=== PATIENT | female | born 1995 | race Caucasian/White ===

== ENCOUNTER 2021-09-07 11:09 | Outpatient (CLI) | payer OTHER, SELFPAY ==
[2021-09-07 18:54] LABS: Hemoglobin 12.8 g/dL (12.0-15.0); Mean Corpuscular HGB Conc 31.2 g/dl (32-36); Mean Corpuscular Hemoglobin 29.2 pg (26-34); Mean Corpuscular Volume 93.6 fl (80-100); Mean Platelet Volume 10.6 fl (7.4-10.4); Platelet Count Result 325 k/mm3 (150-375); Red Blood Count 4.38 M/mm3 (4.2-5.4); Red Cell Distribution Width 13.2 % (11.5-14.5); White Blood Count 9.3 K/mm3 (4.5-10.0)
[2021-09-07 19:19] LABS: Alanine Aminotransferase 41 U/L (4-35); Albumin Level 4.3 g/dL (3.5-5.1); Alkaline Phosphatase 58 U/L (38-126); Anion Gap 11 mmol/L (8-16); Aspartate Amino Transferase 37 U/L (14-36); Bilirubin,Total 1.1 mg/dL (0.2-1.3); Blood Urea Nitrogen 12 mg/dL (7-17); Calcium 9.2 mg/dL (8.4-10.2); Carbon Dioxide 22 mmol/L (22-30); Chloride 104 mmol/L (98-107); Cholesterol 231 mg/dL (0-200); Estimated Glomerular Filt Rate > 60; Glucose 108 mg/dL (65-110); HDL Direct 62 mg/dL; Potassium 4.1 mmol/L (3.4-5.0); Sodium 137 mmol/L (137-145); Triglycerides 114 mg/dL (<150)
[2021-09-07 19:30] LABS: LDL Cholesterol Direct 132 mg/dL
== END 2021-09-07 11:10 | disposition home or self-care (01) ==
LOC: ANHBWCLAB 11:11
PROVIDERS: PCP Family Medicine; Visit Provider Family Medicine
DX: Z00.00 Encounter for general adult medical examination without abnormal findings (principal); G43.909 Migraine, unspecified, not intractable, without status migrainosus; F41.9 Anxiety disorder, unspecified; R00.2 Palpitations
CPT/HCPCS: 36415; 80053; 80061; 82306; 84443; 85027

== ENCOUNTER 2021-11-07 09:54 | Outpatient (CLI) | payer OTHER, SELFPAY ==
[2021-11-07 19:07] LABS: Alanine Aminotransferase 15 U/L (6-35); Albumin Level 4.1 g/dL (3.5-5.1); Alkaline Phosphatase 58 U/L (38-126); Aspartate Amino Transferase 19 U/L (14-36); Bilirubin,Total 0.9 mg/dL (0.2-1.3)
== END 2021-11-07 09:55 | disposition home or self-care (01) ==
PROVIDERS: PCP Family Medicine; Visit Provider Family Medicine
DX: R74.8 Abnormal levels of other serum enzymes (principal)
CPT/HCPCS: 36415; 80076

== ENCOUNTER 2022-04-11 10:54 | Emergency (ER) | payer OTHER, SELFPAY ==
[2022-04-11 11:02] VITALS: BP 137/90; PULSE 114; RESP 18; TEMP 36.9; O2SAT 99
--- NOTE | 2022-04-11 11:24 | ED.URI ---
HPI - URI/Sore Throat General Chief Complaint: Upper Respiratory Infection Stated Complaint: Sore Throat,Congestion,Runny Nose Time Seen by Provider: 04/11/22 11:17 Source: patient Mode of arrival: ambulatory Limitations: no limitations History of Present Illness HPI Narrative: Patient presents today with a 2 day history of cough, headache, sore throat, fever up to 100.8. Denies shortness of breath or chest pain. She has been taking DayQuil and NyQuil with mild relief. She did not receive a flu vaccine this season. Related Data Home Medications Medication Instructions Recorded Confirmed levonorgestrel-ethinyl estradiol 1 tablet PO DAILY 09/07/21 04/11/22 0.1 mg-20 mcg tablet (Vienva) Allergies Allergy/AdvReac Type Severity Reaction Status Date / Time No Known Allergies Allergy Verified 04/11/22 11:21 Review of Systems Review of Systems: CONSTITUTIONAL: Denies body aches, chills, or sweats.+ Fever EYES: Denies visual changes, redness, or discharge. ENT: Denies rhinorrhea, congestion, or otalgia.+ sore throat CARDIOVASCULAR: Denies chest pain, palpitations, or edema. RESPIRATORY: Denies dyspnea.+ cough GASTROINTESTINAL: Denies abdominal pain, nausea, vomiting, or diarrhea. GENITOURINARY: Denies dysuria or hematuria. SKIN: Denies rash, itching, or wounds. MUSCULOSKELETAL: Denies back pain, joint pain, or myalgia. NEUROLOGIC: Denies numbness, tingling, or weakness.+ headache PSYCH: Denies depression or anxiety. [facility] Past Medical History Medical History Anxiety Migraine Family History Family History Father Hypertension Grandparent Diabetes mellitus Heart disease Depression Cancer Grandparent Alcohol abuse Diabetes mellitus Hypertension Heart disease Social History Social History Smoking status: Unknown if ever smoked Drinks per week: 3 Alcohol use details: wine Substance use: never Additional occupation/education comments: [employer] Gender identity (if verbalized by the patient): Female Sexual Orientation (if Verbalized by the Patient): Straight or Heterosexual Agree to blood products: Yes Comments At time of signature, I have reviewed and agree with nursing past medical, surgical, social and family history unless otherwise noted. Please see nursing chart for further information. There is no relevant family history pertinent to the presenting complaint Exam Narrative: GENERAL: mildly ill-appearing, well-nourished, and in no acute distress. HEAD: Normocephalic, atraumatic. EYES: EOMI. No redness or drainage. Conjunctivae normal. ENT: Mucous membranes pink and moist. Nares clear. No rhinorrhea. TMs normal bilaterally. Throat mildly erythematous without edema or exudate. Uvula midline. NECK: Normal AROM. Supple. No lymphadenopathy. CHEST: No respiratory distress. Clear to auscultation. HEART: Regular rate and rhythm. No murmur appreciated. Normal peripheral pulses. EXTREMITIES: Normal range of motion. No edema. SKIN: Warm, dry, no rash. Capillary refill normal. Normal skin turgor. NEURO: No focal deficits. Alert and oriented x3. Gait steady. PSYCH: Normal affect. No signs of depression or anxiety. Course Course Level of Care: Express Care Visit Vital Signs Vital signs: Vital Signs Temperature 98.5 F 04/11/22 11:02 Pulse Rate 114 H 04/11/22 11:02 Respiratory Rate 18 04/11/22 11:02 Blood Pressure 137/90 04/11/22 11:02 Pulse Oximetry 99 04/11/22 11:02 Oxygen Delivery Room Air 04/11/22 11:02 Temperature 98.5 F 04/11/22 11:02 Pulse Rate 114 H 04/11/22 11:02 Respiratory Rate 18 04/11/22 11:02 Blood Pressure 137/90 04/11/22 11:02 Pulse Oximetry 99 04/11/22 11:02 Oxygen Delivery Room Air 04/11/22 11:02 Reviewed. Pt
== END 2022-04-11 11:30 | disposition home or self-care (01) ==
PROVIDERS: Emergency Provider Nurse Practitioner; PCP Family Medicine
DX: J10.1 Influenza due to other identified influenza virus with other respiratory manifestations (principal)
CPT/HCPCS: 87081; 87804; 87880; 99213; G0463

== ENCOUNTER 2022-09-11 08:39 | Outpatient (CLI) | payer OTHER, SELFPAY ==
[2022-09-11 17:53] LABS: Basophils Percent Auto 0.4 % (0.2-1.2); Eosinophils Absolute Auto 0.1 K/mm3 (0-0.3); Eosinophils Percent Auto 1.3 % (0-4.4); Hematocrit 40.5 % (37.0-47.0); Hemoglobin 12.6 g/dL (12.0-15.0); Immature Granulocyte Absolute 0.02 K/mm3 (0.00-0.031); Immature Granulocyte Percent A 0.2 % (0-0.5); Lymphocytes Absolute Auto 3.43 K/mm3 (0.9-3.2); Lymphocytes Percent Auto 37.7 % (18.3-44.2); Mean Corpuscular HGB Conc 31.1 g/dl (32-36); Mean Corpuscular Hemoglobin 28.9 pg (26-34); Mean Corpuscular Volume 92.9 fl (80-100); Mean Platelet Volume 9.9 fl (7.4-10.4); Monocytes Absolute Auto 0.6 K/mm3 (0.1-0.6); Neutrophils Percent Auto 54.4 % (45.5-73.1); Platelet Count Result 380 k/mm3 (150-375); Red Blood Count 4.36 M/mm3 (4.2-5.4); Red Cell Distribution Width 13.3 % (11.5-14.5); White Blood Count 9.1 K/mm3 (4.5-10.0)
[2022-09-11 18:22] LABS: Vitamin D 25 Hydroxy 42.6 ng/mL
[2022-09-11 18:36] LABS: Alanine Aminotransferase 19 U/L (6-35); Albumin Level 4.2 g/dL (3.5-5.1); Alkaline Phosphatase 49 U/L (38-126); Anion Gap 5 mmol/L (8-16); Aspartate Amino Transferase 92 U/L (14-36); Bilirubin,Total 0.6 mg/dL (0.2-1.3); Blood Urea Nitrogen 8 mg/dL (7-17); Carbon Dioxide 28 mmol/L (22-30); Chloride 106 mmol/L (98-107); Cholesterol 219 mg/dL (0-200); Estimated Glomerular Filt Rate > 60; Glucose 81 mg/dL (65-110); HDL Direct 57 mg/dL; Potassium 4.1 mmol/L (3.4-5.0); Sodium 139 mmol/L (137-145); Triglycerides 81 mg/dL (<150)
[2022-09-11 18:47] LABS: LDL Cholesterol Direct 125 mg/dL
== END 2022-09-11 08:40 | disposition home or self-care (01) ==
PROVIDERS: PCP Family Medicine; Visit Provider Nurse Practitioner
DX: Z00.00 Encounter for general adult medical examination without abnormal findings (principal); R53.83 Other fatigue
CPT/HCPCS: 36415; 80053; 80061; 82306; 84443; 85025

== ENCOUNTER 2023-11-28 08:22 | Outpatient (CLI) | payer OTHER, SELFPAY ==
--- NOTE | ~2023-11-28 | XR_ITS ---
Right elbow Technique: AP and lateral views were obtained. Clinical History: Pain Findings: No acute fracture or dislocation is seen. Osseous alignment is anatomic. Joint spaces are p reserved. There is no displacement of the fat pads, and soft tissues are unremarkable. Impression: Unremarkable radiographs. Reviewed, dictated and finalized at location . Impression: Unremarkable radiographs.
[2023-11-28 20:07] LABS: Hematocrit 42.5 % (37.0-47.0); Hemoglobin 12.9 g/dL (12.0-15.0); Mean Corpuscular HGB Conc 30.4 g/dl (32-36); Mean Corpuscular Hemoglobin 28.4 pg (26-34); Mean Corpuscular Volume 93.4 fl (80-100); Mean Platelet Volume 9.9 fl (7.4-10.4); Platelet Count Result 386 k/mm3 (150-375); Red Blood Count 4.55 M/mm3 (4.2-5.4); White Blood Count 9.7 K/mm3 (4.5-10.0)
[2023-11-28 20:28] LABS: Alanine Aminotransferase 34 U/L (6-35); Albumin Level 4.4 g/dL (3.5-5.1); Alkaline Phosphatase 66 U/L (38-126); Anion Gap 10 mmol/L (4-12); Aspartate Amino Transferase 100 U/L (14-36); Bilirubin,Total 1.3 mg/dL (0.2-1.3); Blood Urea Nitrogen 11 mg/dL (7-17); Calcium 9.2 mg/dL (8.4-10.2); Carbon Dioxide 26 mmol/L (22-30); Chloride 103 mmol/L (98-107); Cholesterol 229 mg/dL (0-200); Estimated Glomerular Filt Rate > 60; Glucose 80 mg/dL (65-110); HDL Direct 49 mg/dL; Potassium 3.5 mmol/L (3.4-5.0); Sodium 139 mmol/L (137-145); Triglycerides 116 mg/dL (<150)
[2023-11-28 20:39] LABS: LDL Cholesterol Direct 134 mg/dL
== END 2023-11-28 08:23 | disposition home or self-care (01) ==
PROVIDERS: PCP Nurse Practitioner Adult Health; Visit Provider Nurse Practitioner Adult Health
DX: Z13.9 Encounter for screening, unspecified (principal); M25.521 Pain in right elbow
CPT/HCPCS: 36415; 73070; 80053; 80061; 84443; 85027

== ENCOUNTER 2023-12-21 12:06 | Outpatient (CLI) | payer OTHER, SELFPAY ==
--- NOTE | ~2023-12-21 | MR_ITS ---
MRI of the right elbow CLINICAL HISTORY: Injury TECHNIQUE: Proton-density and proton-density fat-sat imaging was performed in the axial, coronal, and sagittal planes. FINDINGS: Ulnar collateral ligament is intact. Radial collateral ligament and the lateral ulnar colla teral ligament are intact. There is minimal tendinosis of the common extensor tendon origin. Common f lexor tendon origin is unremarkable. Moderate elbow joint effusion present. There is apparent synovitis or debris/loose bodies within the joint effusion. No erosive change evident. Bone marrow signals are unremarkable. Brachialis, biceps, and triceps tendons are intact. Visualized musculature unremarkable. Subcutaneous soft tissues are unremarkable. IMPRESSION: Moderate elbow joint effusion with associated synovitis and/or internal debris/small loose bodies. No distinct bone marrow edema or erosive changes are present. Etiology of joint effusion is unclear. Co rrelate clinically. Consider joint aspiration as indicated. Reviewed, dictated and finalized at [place] [facility]. IMPRESSION: Moderate elbow joint effusion with associated synovitis and/or internal debris/ small loose bodies. No distinct bone marrow edema or erosive changes are presen t. Etiology of joint effusion is unclear. Correlate clinically. Consider joint aspiration as indicated.
== END 2023-12-21 12:07 | disposition home or self-care (01) ==
PROVIDERS: PCP Nurse Practitioner Adult Health; Visit Provider Nurse Practitioner Family
DX: M25.421 Effusion, right elbow (principal); S59.901A Unspecified injury of right elbow, initial encounter; M25.521 Pain in right elbow
CPT/HCPCS: 73221